=== PATIENT | male | born 1995 | race Hispanic/Latino ===

== ENCOUNTER 2019-12-08 18:26 | Emergency (ER) | payer OTHER ==
[~2019-12-08] VITALS: Ht 182.9 cm; Wt 88.6 kg
[2019-12-08] MEDS ORDERED: CLIN300C5 PO (20:20)
[2019-12-08] MEDS ORDERED: PRED10TA2 PO (20:20)
[2019-12-08 20:26] VITALS: BP 138/78
[2019-12-08] MEDS ORDERED: predniSONE 50 MG TAB PO ONE (20:30)
[2019-12-08] MEDS ORDERED: CLINDAMYCIN 150 MG CAP PO ONE (20:30)
== END 2019-12-08 20:42 | disposition home or self-care (01) ==
LOC: M ED 18:26
DX: J03.90 Acute tonsillitis, unspecified (principal)